=== PATIENT | male | born 1970 | race African-American/Black ===

== ENCOUNTER 2018-03-08 23:31 | Emergency (ER) | payer MEDICAID ==
[~2018-03-08] VITALS: Ht 175.3 cm; Wt 92.0 kg
[2018-03-08 23:57] VITALS: BP 108/62
== END 2018-03-09 04:14 | disposition left against medical advice (07) ==
LOC: ER 23:31
DX: Z53.21 Procedure and treatment not carried out due to patient leaving prior to being seen by health care provider (principal)